=== PATIENT | female | born 1955 | race Caucasian/White ===

== ENCOUNTER → 2016-11-04 | Day surgery (SDC) | payer BC ==
--- NOTE | 2016-10-24 18:03 | MH ---
cc: MARY JONES DATE OF ADMISSION 11/04/2016 ADMITTING DIAGNOSIS Complex tear of the medial meniscus of her left knee, tricompartmental chondromalacia left knee, effusion left knee, loose body left knee, pain left knee. HISTORY OF THE PRESENT ILLNESS The patient is a 61-year-old white female who has experienced left knee pain of approximately 3 months duration. While participating in a boot camp exercise program the patient became symptomatic with a generalized tight sensation about the medial aspect of her left knee. There was no unusual activity associated with the exercise program that the patient might associate with her symptoms. During the following week she conformed to modified activities, not resuming her exercise program. She was applying ice and alternating between Motrin and Aleve as well as rubbing compound for pain management. She was also wearing an elastic knee support for ambulatory activities. She presented to the undersigned physician in June of this year complaining of residual pain about the medial aspect of her left knee. Her x-ray studies revealed trace narrowing of the medial compartment with multiple densities about the posterior medial aspect of the knee suggestive of possible loose bodies. There was no acute bony abnormality noted. The patient was diagnosed as having a transient synovitis of her left knee with loose bodies and pain for which she elected to continue with conservative management while being initiated into a course of physical therapy. She was followed on an outpatient basis thereafter returning to the office in August of this year reporting that she had completed her course of physical therapy and had returned to routine exercise activities and seeming to be reasonably comfortable at that time. Treatment options were again reviewed. The patient elected to continue with her exercise activities, but unfortunately as she attempted to increase her exercise routine she had noted the abrupt recurrence of swelling and pain about her left knee while continuing to try and participate in her boot camp exercise program. The patient was treated with an intra-articular steroid injection at that time and continued to be followed on an outpatient basis. Because of lingering symptoms she subsequently underwent an MRI scan, the results of which identified a complex tear involving the medial meniscus, involving the posterior horn with a horizontal component extending into the undersurface and a radial component extending to the free edge. There was a medial extrusion of a portion of the inferior aspect of the body of the medial meniscus. The lateral meniscus was intact. Osteoarthritic findings of a moderate to severe degree of the patellofemoral area with chondromalacia as well as the medial and lateral compartments was also noted. There was a moderate sized joint effusion and multiple osteochondral bodies. The patient was experiencing a waxing of symptoms about her left knee with residual swelling for which treatment options were again reviewed. The pros and cons of continuing with conservative management versus operative intervention that would involve arthroscopic surgery were outlined in detail. Emphasis was made regarding the fact that the decision to proceed with surgery would be left entirely to the patient's discretion. At that time the patient felt that she was experiencing enough symptomatology that arthroscopic surgery would seem to be a reasonable alternative and in compliance with her wishes she is currently being admitted in order that the above be accomplished. PAST MEDICAL HISTORY Her past medical history, hospitalizations and surgeries have included: Colonoscopy and wisdom teeth extraction. The patient's medical illnesses include: 1. Hypothyroidism for which she takes Synthroid 100 mcg daily. 2. And Cytomel 5 mcg daily. Additional medications include: 1. Vitamin D. 2. Fish oil. 3. Red yeast rice. 4. Selenium. 5. Magnesium. 6. Vitamin C. ALLERGIES The patient denies any known drug allergies. REVIEW OF SYSTEMS She wears glasses for reading purposes. Denies headache, seizure or syncope. No sinus congestion or epistaxis. Auditory acuity intact. No tinnitus. No bleeding gums or dysphagia. Denies cough, shortness of breath, upper respiratory infection, pneumonia or tuberculosis. No angina or heart disease. Her appetite is good. Bowel movements are regular. There is no hepatitis, gallbladder disease or ulcers. There is a positive history of hemorrhoids. No urinary tract infection. No kidney stones. No history of fractures. No psychiatric illness. Her remaining review of systems is unremarkable and noncontributory. FAMILY HISTORY The patient has been 28 years. Her is 65 years of age. He did suffer a stroke with no residual. He also has a history of hypertension. one daughter is described as being in good health. Family history is positive for hypertension and emphysema. SOCIAL HISTORY The patient completed in college degree. She is employed in a management office setting. She denies active use of tobacco. Ethanol consumption on a very rare and limited basis. PHYSICAL EXAMINATION GENERAL: Height 5 feet 7 inches, weight 146 pounds. An alert, oriented and responsive 61-year-old white female who sits quietly upon the examination table with no obvious distress. HEAD, EARS, EYES, NOSE, AND THROAT: Pupils are equally round and reactive to light. Extraocular movements full. Sclerae clear. External nares clear. External auditory canals clear. Dental intact. Mucous membranes pink and moist. Pharynx clear. NECK: Supple. Active range of motion with no significant pain. Carotid pulse palpable bilaterally. Trachea midline. Thyroid without enlargement. LUNGS: Clear to auscultation and percussion. No CVA tenderness. No discomfort throughout the dorsal lumbar spine. HEART: Regular rhythm. No murmur or gallop. ABDOMEN: Soft, nontender. Bowel sounds present. PELVIC: Per primary care physician. EXTREMITIES: Left knee no significant swelling or effusion about the left knee. There is a minimal fullness possibly suggestive of redundancy of tissue. Tenderness about the suprapatellar region. There is limited mobility of the extreme flexion without associated crepitation. No collateral ligamentous instability. Gabe test and drawer sign negative. Pivot shift and Felicia sign positive for medial compartment pain. Distal sensory grossly intact. Independent gait. NEUROLOGICAL: Cranial nerves II-XII grossly intact. IMPRESSION Complex tear medial meniscus left knee, tricompartmental chondromalacia left knee, effusion left knee, loose bodies left knee, pain left knee. PLAN Arthroscopic surgery and possible arthrotomy left knee. The nature of the planned surgical procedure, the potential complications and risks associated, the expectations of surgery and the consent form were thoroughly reviewed with the patient prior to admission to the hospital. Melaine has indicated her full understanding regarding all of the above and given consent to proceed with treatment as outlined. Medical evaluation and clearance for surgery will be completed by her primary care physician Dr. Carol Ma. MD VANDANA Wong/KK /4:25 PM /5:35 PM
[~2016-11-04] VITALS: Ht 170.2 cm; Wt 66.1 kg
[~2016-11-04] MED LIST: ACETAMINOPHEN/HYDROcodone 325 MG/5 MG TAB PO PRN; CHLORHEXIDINE GLUCONATE 4% SOLN 120 ML BTL TOP SCH; CHOL50006 PO; CYTO5TAB PO; DEXAMETHASONE SOD PHOS 4 MG/ML VIAL ONE; DO NOT ADM ANY ANTICOAGULANT DRUGS XX PRN; FAMOTIDINE 20 MG/2 ML VIAL ONE; FISH500C PO; INSULIN HUMAN REGULAR 1,000 UNITS/10 ML VIAL SQ PRN; KETOROLAC TROMETHAMINE 60 MG/2 ML (IM) VIAL IM ONE; LACTATED RINGER'S 1000 ML IV SCH; LEVO.1 PO; LIDOCAINE HCL 2% 50 ML VIAL ONE; MAGN1TAB14 PO; METOPROLOL TARTRATE 25 MG TAB PO PRN; MIDAZOLAM HCL 2 MG/2 ML VIAL ONE; MORPHINE SULFATE 10 MG/ML INJ IM PRN; ONDANSETRON HCL 4 MG/2 ML VIAL IV PUSH ONE; POVIDONE IODINE 7.5% SCRUB 118 ML BOTTLE TOP SCH; PROMETHAZINE INJ 25 MG/ML VIAL IM PRN; PROPOFOL 200 MG/20 ML AMP IV ONE; REDCAP2 PO; SELE1TAB PO; SODIUM CHLORID 0.9% 500 ML IV SCH; TRANEXAMIC ACID 1 GM POST-OP IV SCH; TRANEXAMIC ACID 1 GM PRIOR TO PROCEDURE IV SCH; TRIAMCINOLONE ACETONIDE 40 MG/ML VIAL IA ONE; ceFAZolin 2 GM PREMIX 50 ML IV SCH
[2016-11-04 07:03] VITALS: BP 120/63; PULSE 69; RESP 16; TEMP 98.2; O2SAT 100
--- NOTE | 2016-11-04 11:02 | MP ---
cc: MARY JONES DATE OF OPERATION November 04, 2016 PREOPERATIVE DIAGNOSES Complex tear of the medial meniscus of the left knee. Tricompartmental chondromalacia left knee. Effusion left knee. Loose body left knee. Pain in the left knee. POSTOPERATIVE DIAGNOSES Complex tear of the medial meniscus of the left knee. Tricompartmental chondromalacia left knee. Effusion left knee. Loose body left knee. Pain in the left knee. PROCEDURE Partial medial meniscectomy of the left knee, chondroplasty of the patellofemoral joint and the medial compartment and removal of loose body left knee SURGEON MD Shreya ANESTHESIA General by LMA FORMAT Following the induction of satisfactory general anesthesia by LMA insertion as completed per the Department of Anesthesia, examination of the left knee revealed a satisfactory range of motion with no appreciable ligamentous instability. The extremity proper was positioned into the rn surgical pcu knee marte, prepped with Betadine solution and draped into a sterile field in the routine manner. Prior to initiation of the actual procedure, the standard time-out protocol was completed. All parameters were appropriately addressed and confirmed by operating room personnel. Arthroscopic instrumentation was introduced through stab wound utilizing cannula with sharp and blunt trocar. The inflow irrigation was by way of a medial suprapatellar portal, the arthroscope through a lateral parapatellar portal and a probe through a medial parapatellar portal. Examination of the suprapatellar pouch did reveal a mild degree of synovial proliferation, a pronounced articular irregularity of the patellofemoral joint was appreciated consistent with localized chondromalacia. Within the medial compartment, a degenerative tear involving the posterior horn of the medial meniscus was noted. The adjacent articular surfaces of both the femoral condyle and tibial plateau did demonstrate localized changes consistent with chondromalacia. Proliferative synovium did extend into the intercondylar region. The anterior cruciate ligament was identified and noted to be intact. The lateral compartment was less remarkable with uniformity of articular surfaces and continuity of the lateral meniscus. During the course of the arthroscopic procedure, a loose body was identified as it passed across the intercondylar region and was removed without difficulty with the shaver device. The shaver was oriented into the medial compartment where a partial medial meniscectomy was accomplished as well as a chondroplasty of the adjacent articular surfaces of femoral condyle and tibial plateau. The shaver was thereafter oriented into the patellofemoral joint where an additional chondroplasty of the patellofemoral joint was completed. Thereafter the joint space was thoroughly lavaged and suctioned dry. An intraarticular Kenalog/lidocaine injection was completed, arthroscopic instrumentation being removed. The portal sites were reapproximated with Steri-Strips over which Xeroform gauze and a bulky dry sterile dressing were placed. Anesthesia was discontinued and the patient thus transferred to a hospital stretcher and returned to the recovery room in satisfactory condition having tolerated her operative procedure well. Estimated blood loss was less than 10 cc. MD VANDANA Wong/OG /10:06 AM /10:46 AM
[2016-11-04 11:24] VITALS: BP 151/71; PULSE 66; RESP 18; TEMP 97.9; O2SAT 100
== END | disposition home or self-care (01) ==
LOC: HSDC 06:04
PROVIDERS: ATTEND Orthopaedic Surgery
DX: S83.232A Complex tear of medial meniscus, current injury, left knee, initial encounter (principal); M94.262 Chondromalacia, left knee; E03.9 Hypothyroidism, unspecified
CPT/HCPCS: 01400; 29881; J0690; J1100; J1885; J2250; J2405; J3010; J3301; J7120